=== PATIENT | female | born 1965 | race Caucasian/White ===

== ENCOUNTER → 2021-05-07 | Day surgery (SDC) | payer OTHER ==
[2021-05-06 09:50] VITALS: BMI 35.5
[~2021-05-07] MED LIST: LACTATED RINGERS 1,000 ML IV SCH; LIDOCAINE 1% (10MG/ML) FOR IV START INTRADERMA ONE; LIDOCAINE 1% (10MG/ML) FOR IV START INTRADERMA PRN; PROPOFOL 10 MG/ML 20 ML VIAL IV ONE
[2021-05-07 09:28] VITALS: RESP 16; TEMP 96.8
[2021-05-07 09:31] LABS: Glucose,Whole Blood 191 mg/dL (75-99)
--- NOTE | 2021-05-07 10:31 | P.GSHP ---
History of Present Illness H&P Date: 05/07/21 Chief Complaint: Screening colonoscopy Is a 55-year-old female been safe for screening colonoscopy. She denies a significant complaints. Past Medical History Past Medical History: Asthma, COPD, Diabetes Mellitus, Hyperlipidemia, Hyper tension History of Any Multi-Drug Resistant Organisms: None Reported Past Surgical History: Section, Cholecystectomy, Tonsillectomy Additional Past Surgical History / Comment(s): BMT Past Anesthesia/Blood Transfusion Reactions: No Reported Reaction Smoking Status: Current every day smoker - Past Family History Mother Family Medical History: Cancer Medications and Allergies Home Medications Medication Instructions Recorded Confirmed Type Albuterol Sulfate [Proair Hfa] 1 - 2 puff INHALATION Q6HR PRN 05/06/21 05/06/21 History Atorvastatin [Lipitor] 10 mg PO DAILY 05/06/21 05/06/21 History Budesonide/Formoterol Fumarate 2 puff INHALATION BID 05/06/21 05/06/21 History [Symbicort 160-4.5 Mcg Inhaler] DULoxetine HCL [Cymbalta] 60 mg PO BID 05/06/21 05/06/21 History Dulaglutide [Trulicity] 1.5 mg SQ WE 05/06/21 05/06/21 History Ergocalciferol [Vitamin D2 (1250 1,250 mcg PO Q30D 05/06/21 05/06/21 History Mcg = [id number] Iu)] Gabapentin [Neurontin] 800 mg PO QID 05/06/21 05/06/21 History Pantoprazole [Protonix] 40 mg PO DAILY 05/06/21 05/06/21 History lamoTRIgine [LaMICtal] 25 mg PO DAILY 05/06/21 05/06/21 History lisinopriL [Zestril] 2.5 mg PO DAILY 05/06/21 05/06/21 History metFORMIN HCL [Glucophage] 1,000 mg PO BID 05/06/21 05/06/21 History Allergies Allergy/AdvReac Type Severity Reaction Status Date / Time levofloxacin [From Levaquin] Allergy LEGS Verified 05/07/21 09:12 SWELLING Surgical - Exam Vital Signs Temp Pulse Resp BP Pulse Ox 96.8 F L 80 16 142/67 95 05/07/21 09:21 05/07/21 09:21 05/07/21 09:21 05/07/21 09:21 05/07/21 09:21 - General well developed, well nourished, no distress - Eyes PERRL - ENT normal pinna - Neck no masses - Respiratory normal expansion - Cardiovascular Rhythm: regular - Abdomen Abdomen: soft, non tender Results - Labs Abnormal Lab Results - Last 24 Hours (Table) 05/07/21 Range/Units 09:25 POC Glucose (mg/dL) 191 H (75-99) mg/dL Assessment and Plan Assessment: We'll perform screening colonoscopy.
--- NOTE | 2021-05-07 10:46 | P.OP ---
Date of Procedure: 05/07/21 Preoperative Diagnosis: Screening colonoscopy Postoperative Diagnosis: Rectal polyp Diverticulosis Procedure(s) Performed: Colonoscopy Anesthesia: MAC Surgeon: Chuy Gonzalez Pathology: other (Rectal polyp) Condition: stable Disposition: PACU Description of Procedure: The patient's placed on the endoscopy table lateral position. Received IV sedation. Digital rectal exam was performed which revealed no abnormalities. The possible colonoscope was then placed patient anus passed rotator colon. Ileocecal valve was visualized. The cecum, ascending and transverse colon appeared normal. In the descending and sigmoid: There was mild diverticular. The scope was brought back the rectum and a small sessile polyp was seen. This removed the cold forcep. The scope was withdrawn for patient.
[2021-05-07 10:58] LABS: Glucose,Whole Blood 197 mg/dL (75-99)
[2021-05-07 11:15] VITALS: BP 143/86; PULSE 60
== END ==
LOC: ORWHC2ENDO 08:21
PROVIDERS: ATTEND Surgery
DX: Z12.11 Encounter for screening for malignant neoplasm of colon (principal); K62.1 Rectal polyp; F41.9 Anxiety disorder, unspecified; F32.9 Major depressive disorder, single episode, unspecified; I10 Essential (primary) hypertension; E11.9 Type 2 diabetes mellitus without complications; J45.909 Unspecified asthma, uncomplicated; J44.9 Chronic obstructive pulmonary disease, unspecified; E78.00 Pure hypercholesterolemia, unspecified; F17.200 Nicotine dependence, unspecified, uncomplicated; M06.9 Rheumatoid arthritis, unspecified; G43.909 Migraine, unspecified, not intractable, without status migrainosus; E66.9 Obesity, unspecified; Z68.33 Body mass index [BMI] 33.0-33.9, adult; M54.50 Low back pain, unspecified; J98.4 Other disorders of lung; Z87.01 Personal history of pneumonia (recurrent); Z90.49 Acquired absence of other specified parts of digestive tract; Z98.890 Other specified postprocedural states; Z98.891 History of uterine scar from previous surgery; Z83.3 Family history of diabetes mellitus; Z82.49 Family history of ischemic heart disease and other diseases of the circulatory system; Z80.1 Family history of malignant neoplasm of trachea, bronchus and lung; Z79.84 Long term (current) use of oral hypoglycemic drugs; Z79.899 Other long term (current) drug therapy; Z79.51 Long term (current) use of inhaled steroids; Z88.1 Allergy status to other antibiotic agents
CPT/HCPCS: 88305; 45380; J2704

== ENCOUNTER → 2024-05-15 | Outpatient (CLI) | payer OTHER ==
--- NOTE | 2024-05-15 20:07 | MR ---
EXAMINATION TYPE: MR brain wo con DATE OF EXAM: 05/15/2024 7:23 PM COMPARISON: None. CLINICAL INDICATION: Female, 58 years old with history of R27.0, G25.0, R29.898, R41.3; PHH, Loss of balance, dizziness, Weakness right side, forgetfulness, short term memory loss TECHNIQUE: Multi planar, multi sequence imaging was performed through the brain including: T1, T2, In version recovery, Diffusion weighted imaging, and gradient echo imaging. No gadolinium was given. FINDINGS: The arias-white junctions, ventricular system, basal cisterns appear unremarkable. Minimal scattered foci of high T2 signal intensity are seen within the periventricular white matter. Midline structure s show no abnormality. Diffusion-weighted imaging shows no evidence of restricted diffusion. The susc eptibility weighted images do not reveal any evidence for micro-hemorrhage. The bone marrow signal is within normal limits. Paranasal sinuses and mastoid air cells: Retention cyst in left maxillary sinus. Bilateral mastoid ai r cell effusions. Visualized orbits: Orbital contents are intact. IMPRESSION: 1. No evidence of intracranial mass or acute/subacute infarct. 2. Nonspecific white matter changes, likely secondary to small vessel ischemic disease. [facility], , 05/15/2024 8:05 PM
== END | disposition home or self-care (01) ==
LOC: RADMRIMAIN 18:20
PROVIDERS: ATTEND Psychiatry & Neurology Neurology
DX: R27.0 Ataxia, unspecified (principal); G25.0 Essential tremor; R29.898 Other symptoms and signs involving the musculoskeletal system; R41.3 Other amnesia; J34.1 Cyst and mucocele of nose and nasal sinus
CPT/HCPCS: 70551